=== PATIENT | female | born 1970 | race Caucasian/White ===

== ENCOUNTER 2024-09-17 09:10 | Outpatient (CLI) | payer OTHER | END 2024-09-17 09:11 | disposition home or self-care (01) | LOC: CSHWCC 09:10 | PROVIDERS: ATTEND Nurse Practitioner Family | DX: S31.109D Unspecified open wound of abdominal wall, unspecified quadrant without penetration into peritoneal cavity, subsequent encounter (principal); T81.31XD Disruption of external operation (surgical) wound, not elsewhere classified, subsequent encounter; L98.7 Excessive and redundant skin and subcutaneous tissue | CPT/HCPCS: 99213; G0463 ==

== ENCOUNTER 2024-09-24 16:11 | Outpatient (CLI) | payer OTHER | END 2024-09-24 16:12 | disposition home or self-care (01) | LOC: CSHWCC 16:11 | PROVIDERS: ATTEND Nurse Practitioner Family | DX: S31.109D Unspecified open wound of abdominal wall, unspecified quadrant without penetration into peritoneal cavity, subsequent encounter (principal); T81.31XD Disruption of external operation (surgical) wound, not elsewhere classified, subsequent encounter; L98.7 Excessive and redundant skin and subcutaneous tissue | CPT/HCPCS: 11042 ==

== ENCOUNTER 2024-10-09 15:27 | Outpatient (CLI) | payer OTHER | END 2024-10-09 15:28 | disposition home or self-care (01) | LOC: CSHWCC 15:27 | PROVIDERS: ATTEND Nurse Practitioner Family | DX: S31.109D Unspecified open wound of abdominal wall, unspecified quadrant without penetration into peritoneal cavity, subsequent encounter (principal); T81.31XD Disruption of external operation (surgical) wound, not elsewhere classified, subsequent encounter; L98.7 Excessive and redundant skin and subcutaneous tissue | CPT/HCPCS: 11042; 87070; 87077; 87186; 87205; 99213; G0463 ==

== ENCOUNTER 2024-10-17 14:56 | Outpatient (CLI) | payer OTHER | END 2024-10-17 14:57 | disposition home or self-care (01) | LOC: CSHWCC 14:56 | PROVIDERS: ATTEND Nurse Practitioner Family | DX: T81.31XD Disruption of external operation (surgical) wound, not elsewhere classified, subsequent encounter (principal); S31.109D Unspecified open wound of abdominal wall, unspecified quadrant without penetration into peritoneal cavity, subsequent encounter; L98.7 Excessive and redundant skin and subcutaneous tissue | CPT/HCPCS: 97597; 99213; G0463 ==

== ENCOUNTER 2024-10-24 15:00 | Outpatient (CLI) | payer OTHER | END 2024-10-24 15:01 | disposition home or self-care (01) | LOC: CSHWCC 15:00 | PROVIDERS: ATTEND Nurse Practitioner Family | DX: T81.31XD Disruption of external operation (surgical) wound, not elsewhere classified, subsequent encounter (principal); S31.109D Unspecified open wound of abdominal wall, unspecified quadrant without penetration into peritoneal cavity, subsequent encounter; L98.7 Excessive and redundant skin and subcutaneous tissue | CPT/HCPCS: 99212; G0463 ==